=== PATIENT | male | born 1970 | race Two or more races ===

== ENCOUNTER → 2018-05-16 13:34 | Outpatient (CLI) | payer OTHER, SELFPAY ==
[2018-05-16 13:46] LABS: Adenovirus F 40/41, stool Not Detected (NotDetected); Astrovirus Not Detected (NotDetected); Campylobacter Not Detected (NotDetected); Clostridium Difficile A/B, PCR Not Detected (NotDetected); Cryptosporidium Not Detected (NotDetected); Cyclospora Cayetanesis Not Detected (NotDetected); Entamoeba histolytica Not Detected (NotDetected); Enteroaggregative E coli Not Detected (NotDetected); Enteropathogenic E coli Not Detected (NotDetected); Enterotoxigenic E coli Not Detected (NotDetected); Giardia lamblia Not Detected (NotDetected); Norovirus Not Detected (NotDetected); Plesimonas Shigalloides, PCR Not Detected (NotDetected); Rotavirus A Not Detected (NotDetected); Salmonella, PCR Not Detected (NotDetected); Sapovirus Not Detected (NotDetected); Shiga-like toxin E coli Not Detected (NotDetected); Shigella Enterovasive E coli Not Detected (NotDetected); Vibrio Cholerae Not Detected (NotDetected); Vibrio, PCR Not Detected (NotDetected); Yersinia Entercolitica, PCR Not Detected (NotDetected)
== END ==
PROVIDERS: PCP Nurse Practitioner Family; Visit Provider Nurse Practitioner
DX: R19.7 Diarrhea, unspecified (principal)
CPT/HCPCS: 87507

== ENCOUNTER → 2019-05-17 07:46 | Outpatient (CLI) | payer OTHER, SELFPAY ==
[2019-05-17 07:47] LABS: MANUAL DIFFERENTIAL MANUAL DIFFERENTIAL (MANUAL DIFF)
[2019-05-17 08:21] LABS: Basophils # 0.1 K/mm3 (0-0.2); Basophils % 0.8 % (0.1-2.0); Eosinophils # 0.2 K/mm3 (0.0-0.4); Hematocrit 47.8 % (42.0-52.0); Hemoglobin 15.1 g/dL (14.1-18.0); Lymphocytes # 1.8 K/mm3 (0.7-4.5); Lymphocytes % 30.6 % (10-50); Mean Corpuscular HGB Conc 31.7 g/dL (31.8-35.4); Mean Corpuscular Hemoglobin 31.5 pg (27.0-31.2); Mean Corpuscular Volume 99.5 fl (80-94); Monocytes # 0.4 K/mm3 (0.1-1.0); Monocytes % 6.3 % (1.7-9.3); Neutrophils # 3.4 K/mm3 (1.8-7.8); Neutrophils % 58.3 % (37.0-80.0); Platelet Count 190 K/mm3 (142-424); Red Cell Distribution Width 13.3 % (11.5-17.5); White Blood Count 5.9 K/mm3 (4.8-10.8)
[2019-05-17 09:57] LABS: Alanine Aminotransferase 42 U/L (12-78); Albumin/Globulin Ratio 1.3 (1.1-1.8); Alkaline Phosphatase 97 U/L (46-116); Anion Gap 13.1 mEq/L (5-15); Aspartate Amino Transferase 23 U/L (15-37); Bilirubin,Total 0.3 mg/dL (0.2-1.0); Blood Urea Nitrogen 14 mg/dL (7-18); Calcium 8.6 mg/dL (8.5-10.1); Carbon Dioxide 26 mmol/L (21.0-32.0); Chloride 103 mmol/L (98-107); Chol/HDL Ratio 3.8 (1-3.5); Cholesterol 184 mg/dL (140-200); Creatinine,Serum 0.71 mg/dL (0.70-1.30); Estimated Glomerular Filt Rate 118 ml/min (>60); GFR (African American) 143 ML/MIN (>60); Globulin 3.1 gm/dl (1.3-3.2); Glucose 102 mg/dL (74-106); HDL Cholesterol 48 mg/dL (27-67); LDL Cholesterol 100 mg/dL (0-130); Potassium 4.1 mmoL/L (3.5-5.1); Sodium 138 mmol/L (136-145); Thyroid Stimulating Hormone 1.57 uIU/ml (0.358-3.740); Total Protein,Serum 7.1 gm/dL (6.4-8.2); Triglycerides 179 mg/dL (30-200); VLDL Cholesterol 36 mg/dL (0-40)
[2019-05-17 10:33] LABS: Eosinophils % 3 % (0-3); Lymphocytes % 23 % (10-50); Monocytes % 12 % (2-9); Neutrophils % 60 % (42-76); Platelet Estimate Normal; Total Cells Counted 100
[2019-05-17 10:34] LABS: RBC Morphology Normal
[2019-05-20 07:14] LABS: Vitamin D 25 Hydroxy 15.8 ng/mL (30.0-100.0)
== END ==
PROVIDERS: Visit Provider Nurse Practitioner Family
DX: E78.5 Hyperlipidemia, unspecified (principal); I10 Essential (primary) hypertension; E55.9 Vitamin D deficiency, unspecified
CPT/HCPCS: 36415; 80053; 80061; 82652; 84439; 84443; 85007; 85014; 85018; 85048; 85049

== ENCOUNTER 2020-02-29 06:39 | Emergency (ER) | payer OTHER, SELFPAY ==
[2020-02-29 06:48] VITALS: BP 138/82; PULSE 70; RESP 16; TEMP 36.9; O2SAT 99; BMI 32.4
--- NOTE | 2020-02-29 07:11 | PC.NURSE ---
report given to kathrine floyd rn
[2020-02-29 07:18] VITALS: BP 123/85; PULSE 64; O2SAT 99
--- NOTE | 2020-02-29 07:19 | HMH.EDALLER ---
ED Disposition Clinical Impression: Allergic reaction Qualifiers: Encounter type: initial encounter Qualified Code(s): T78.40XA - Allergy, unspecified, initial encounter Disposition: Home, Self-Care Condition on Discharge: Good Instructions: DI for General Allergic Reactions Additional Instructions: use meds and see pcp for follow up Prescriptions: predniSONE [Prednisone 20mg Tab] 20 mg PO BID #10 tab Prescription Printed Referrals: Bishnu Patterson APRN [Primary Care Provider] - - Critical Care Critical Care Time: No Attestation: On 02/29/20, the high probability of a clinically significant, sudden or life threatening deterioration of the following system(s) required my full and direct attention, intervention and personal management. The time I documented below is in addition to time spent performing reported procedures but includes the following listed in this critical care notation. Medical Decision Making - Medical Records Medical records reviewed: Yes: I reviewed the patient's medical records. - Steve Inquiry Pt receiving controlled substance: No Vital Signs: 02/29/20 06:48 Temperature 98.5 F Temperature Source Oral Pulse Rate [Right Brachial] 70 Respiratory Rate 16 Blood Pressure [Right Arm] 138/82 Blood Pressure Mean [Right Arm] 100 Blood Pressure Source [Right Arm] Automatic Cuff Blood Pressure Position [Right Arm] Sitting 02 Sat by Pulse Oximetry 99 Oxygen Delivery Method Room Air - Lab Data Lab results reviewed: Yes: I reviewed the patient's lab results. Orders (Tests/Meds): ED MEDICATIONS Generic Name Dose Route Start Last Admin Trade Name Freq PRN Reason Stop Dose Admin Sodium Chloride 8 ml 02/29/20 07:00 02/29/20 07:10 Sodium Chloride 0.9% 10ml Vial IV 03/30/20 06:59 8 ml NEEDED PRN Administration dilute pepcid Discontinued Medications Generic Name Dose Route Start Last Admin Trade Name Freq PRN Reason Stop Dose Admin Diphenhydramine HCl 25 mg 02/29/20 07:00 02/29/20 07:10 Benadryl 50mg/1ml Vial IV 02/29/20 07:01 25 mg ONCE ONE Administration Famotidine 20 mg 02/29/20 07:00 02/29/20 07:10 Pepcid 20mg/2ml Vial IV 02/29/20 07:01 20 mg ONCE ONE Administration Methylprednisolone Sodium Succinate 125 mg 02/29/20 07:00 02/29/20 07:10 Solu-Medrol 125mg/2ml Vial IV 02/29/20 07:01 125 mg ONCE ONE Administration Allergic React/Insect Bite HPI - General Chief complaint: Allergic Reaction Stated complaint: Itching, eyes swollen Time Seen by Provider: 02/29/20 07:00 Mode of Arrival - ED Triage: Family Vehicle Source of Information: Patient, Spouse, Medical Record Limitations: No Limitations - History of Present Illness HPI narrative: itchy and swollen eyes with no known exposure -no resp sx - MD complaint: allergic reaction Onset (ago): hour(s) Symptoms: itching, facial swelling Treatment prior to arrival: none Allergies/Adverse Reactions: Allergies Allergy/AdvReac Type Severity Reaction Status Date / Time From MILK (FOOD/DRUG) Allergy Intermediate NA-NAUSEA/V Uncoded 04/29/19 10:19 OMITING Previous Allergic Reaction History: none Severity: moderate - Related Data Previous Rx's Medication Instructions Recorded amlodipine 5 mg tablet 5 mg PO DAILY #90 tab 04/29/19 gemfibrozil 600 mg tablet 600 mg PO BID 90 Days #180 tab 04/29/19 lovastatin 20 mg tablet 20 mg PO QPM 90 Days #90 tab 04/29/19 cholecalciferol (vitamin D3) 50 2,000 unit PO DAILY #30 cap 05/21/19 mcg (2,000 unit) capsule cholecalciferol (vitamin D3) 1,250 50,000 unit PO QWEEK #14 cap 10/06/19 mcg (50,000 unit) capsule predniSONE [Prednisone 20mg 20 mg PO BID #10 tab 02/29/20 Tab] [facility] History - Hepatitis A Screen Drug use history?: No High risk sexual behaviors?: No History of sexually transmitted infection?: No Currently employed?: No Childcare worker?: No Do you have indoor plumbing?: Yes Do you
[2020-02-29 07:36] VITALS: BP 128/69; PULSE 78; RESP 16; TEMP 36.6; O2SAT 98
== END 2020-02-29 07:37 | disposition home or self-care (01) ==
PROVIDERS: Emergency Provider Emergency Medicine; PCP Nurse Practitioner Family
DX: T78.40XA Allergy, unspecified, initial encounter (principal); J44.9 Chronic obstructive pulmonary disease, unspecified; E78.5 Hyperlipidemia, unspecified; I10 Essential (primary) hypertension
CPT/HCPCS: 96374; 96375; 99282

== ENCOUNTER 2021-03-09 06:08 | Emergency (ER) | payer OTHER, SELFPAY ==
[2021-03-09 06:11] VITALS: BP 163/96; PULSE 86; RESP 17; TEMP 36.9; O2SAT 100; BMI 30.9
--- NOTE | 2021-03-09 06:32 | CT_ITS ---
PROCEDURE: CT ABDOMEN PELVIS W CON CLINICAL INDICATION: periumbilical and bilateral lower quadrant pain COMPARISON: CT ABDPELW/O CT ABD PELVIS W/O CONTRAST from 04/15/2015 TECHNIQUE: IV Contrast: 75ML Isovue 370 Oral Contrast None Axial images obtained with sagittal and coronal reformats. All CT scans at the facility use one or more dose reduction, viz: automated exposure control, ma/kV adjustment per patient size (including targeted exams where dose is matched to indication, i.e. head), or iterative reconstruction technique. FINDINGS: LOWER THORAX: No acute finding. Minimal gynecomastia ABDOMEN & PELVIS: Fatty liver. There is hepatomegaly. The right lobe of the liver measures 23 cm cephalad caudad. The transverse dimension of the liver superiorly is 20 cm. No focal liver lesion is identified. No radiopaque gallstones apparent. The spleen and adrenal glands have an unremarkable appearance. No obvious pancreatic mass or peripancreatic fluid collection. Small bilateral renal cysts are present. 2 mm stone is noted in the lower pole of the left kidney. No hydronephrosis. No ureteral calculi. Small umbilical hernia containing fat. No evidence of appendicitis. No intestinal obstruction or free air. There are few scattered colonic diverticula but no evidence of diverticulitis. No pelvic mass or abnormal fluid collection. No acute bony anomaly. There is mild thickening of the transverse colon versus nondistention. Mild thickening versus nondistention of the rectosigmoid region. IMPRESSION: 1. Hepatomegaly. 2. Nonobstructing 2 mm left lower pole renal calculus. 3. Nonspecific thickening of the transverse colon and rectosigmoid region. This may only be due to nondistention. Colitis is included in the differential diagnosis. Dictated by: Robbie Hooper MD 03/09/2021 08:13 Robbie Hooper MD in [place] 03/09/2021 08:13
[2021-03-09 06:34] VITALS: BP 157/84; PULSE 87; O2SAT 100
--- NOTE | 2021-03-09 06:37 | HMH.EDGENADL ---
ED Disposition Clinical Impression: Colitis Diarrhea Qualifiers: Diarrhea type: unspecified type Qualified Code(s): R19.7 - Diarrhea, unspecified Disposition: Home, Self-Care Condition on Discharge: Good Instructions: DI for Diarrhea and Traveler's Diarrhea -- Adult, DI for Acute Abdominal Pain, DI for Colitis Additional Instructions: You have been evaluated for abdominal pain, diagnosed with colitis. Take bentyl for cramps. Zofran for nausea. Clear liquid diet. Take ciprofloxacin and metronidazole if you develop worsening pain, fever, chills. Follow up with your primary care doctor in 1-2 days for recheck. Return to the ER for any new or worsening pain or other concerns. Prescriptions: Dicyclomine HCl [Bentyl 10mg capsule] 10 mg PO TID PRN #12 cap PRN Reason: Mild Pain Transmission Status: Received by [facility] Ciprofloxacin HCl [Ciprofloxacin 250mg Tab] 500 mg PO BID 10 Days #40 tab Transmission Status: Received by [facility] metroNIDAZOLE [Metronidazole] 500 mg PO Q8 10 Days #30 tab Transmission Status: Received by [facility] Ondansetron [Zofran 4mg ODT] 4 mg PO TIDP PRN #12 tab PRN Reason: Nausea Transmission Status: Received by [facility] Referrals: Rakesh Melgoza MD [Primary Care Provider] - - Critical Care Critical Care Time: No Attestation: On 03/09/21, the high probability of a clinically significant, sudden or life threatening deterioration of the following system(s) required my full and direct attention, intervention and personal management. The time I documented below is in addition to time spent performing reported procedures but includes the following listed in this critical care notation. Medical Decision Making - Steve Inquiry Pt receiving controlled substance: No Vital Signs: 03/09/21 06:11 03/09/21 06:34 03/09/21 09:01 Temperature 98.4 F 98.4 F Temperature Source Oral Pulse Rate 87 78 Pulse Rate [Right] 86 Respiratory Rate 17 18 Blood Pressure 157/84 H 181/106 H Blood Pressure [Right Arm] 163/96 H Blood Pressure Mean [Right Arm] 118 Blood Pressure Source Automatic Cuff Blood Pressure Source [Right Arm] Automatic Cuff Blood Pressure Position Sitting 02 Sat by Pulse Oximetry 100 100 Oxygen Delivery Method Room Air Room Air Room Air - Lab Data Lab Results 03/09/21 06:42: WBC 12.6 H, RBC 4.73, Hgb 15.0, Hct 44.3, MCV 93.6, MCH 31.6 H, MCHC 33.8, RDW 13.1, Plt Count 167, MPV 9.4, Neut % (Auto) 87.0 H, Lymph % (Auto) 8.2 L, [place] % (Auto) 3.2, Eos % (Auto) 1.0, Baso % (Auto) 0.5, Neut # (Auto) 11.0 H, Lymph # (Auto) 1.1, [place] # (Auto) 0.4, Eos # (Auto) 0.1, Baso # (Auto) 0.1, Total Counted 100, Neutrophils % (Manual) 90 H, Lymphocytes % (Manual) 6 L, Monocytes % (Manual) 4, Platelet Estimate Normal, RBC Morphology Normal 03/09/21 06:42: Sodium 135 L, Potassium 4.1, Chloride 102, Carbon Dioxide 23, Anion Gap 14.1, BUN 13, Creatinine 0.70, Estimated Creat Clear 156, Estimated GFR 123, Est GFR ( Amer) 148, Glucose 103 H, Calcium 8.9, Total Bilirubin 0.6, AST 42, ALT 41, Alkaline Phosphatase 90, Total Protein 7.8, Albumin 4.8, Globulin 3.0, Albumin/Globulin Ratio 1.6, Lipase 94 03/09/21 06:50: Lactate 1.1 03/09/21 08:12: Urine Color Yellow, Urine Appearance Clear, Urine pH 5.5, Ur Specific [place] 1.010, Urine Protein Negative, Urine Glucose (UA) Negative, Urine Ketones Negative, Urine Blood Negative, Urine Nitrate Negative, Urine Bilirubin Negative, Urine Urobilinogen 0.2, Ur Leukocyte Esterase Negative, Urine RBC None, Urine WBC 3-5, Ur Squamous Epith Cells Occasional, Urine Bacteria None Result diagrams: 03/09/21 06:42 03/09/21 06:42 Orders (Tests/Meds): ED MEDICATIONS Discontinued Medications Generic Name Dose Route Start Last Admin Trade Name Freq PRN Reason Stop Dose Admin Lactated Ringer's 1,000 mls @ 999 mls/hr 03/09/21 06:45 03/09/21 06:42 Lactated Ringer
[2021-03-09 06:49] LABS: Basophils # 0.1 K/mm3 (0-0.2); Basophils % 0.5 % (0.1-2.0); Eosinophils # 0.1 K/mm3 (0.0-0.4); Hematocrit 44.3 % (42.0-52.0); Lymphocytes # 1.1 K/mm3 (0.7-4.5); Lymphocytes % 8.2 % (10-50); Mean Corpuscular HGB Conc 33.8 g/dL (31.8-35.4); Mean Corpuscular Hemoglobin 31.6 pg (27.0-31.2); Mean Corpuscular Volume 93.6 fl (80-94); Mean Platelet Volume 9.4 fl (7.4-10.4); Monocytes # 0.4 K/mm3 (0.1-1.0); Monocytes % 3.2 % (1.7-9.3); Platelet Count 167 K/mm3 (142-424); Red Blood Count 4.73 M/mm3 (4.60-6.20); Red Cell Distribution Width 13.1 % (11.5-17.5); White Blood Count 12.6 K/mm3 (4.8-10.8)
[2021-03-09 06:54] LABS: MANUAL DIFFERENTIAL MANUAL DIFFERENTIAL (MANUAL DIFF)
[2021-03-09 07:08] LABS: Alanine Aminotransferase 41 U/L (12-78); Albumin Level 4.8 g/dl (3.5-5.0); Albumin/Globulin Ratio 1.6 (1.1-1.8); Alkaline Phosphatase 90 U/L (38-126); Anion Gap 14.1 mEq/L (5-15); Aspartate Amino Transferase 42 U/L (17-59); Bilirubin,Total 0.6 mg/dl (0.2-1.3); Blood Urea Nitrogen 13 mg/dl (9-20); Calcium 8.9 mg/dl (8.4-10.2); Carbon Dioxide 23 mmol/L (22.0-30.0); Chloride 102 mmol/L (98-107); Creatinine Clearance Estimated 156 mL/min (50-200); Estimated Glomerular Filt Rate 123 ml/min (>60); GFR (African American) 148 ML/MIN (>60); Glucose 103 mg/dl (74-100); Lipase 94 U/L (23-300); Potassium 4.1 mmoL/L (3.5-5.1); Sodium 135 mmol/L (136-145); Total Protein,Serum 7.8 g/dl (6.3-8.2)
--- NOTE | 2021-03-09 07:08 | HMH.ITSTN ---
labs still pending for ct abd pelvis with iv contrast. dana states pt is pre diabetic so she waiting for labs to come back.
[2021-03-09 07:13] LABS: Lactic Acid 1.1 mmol/L (0.7-2.1)
--- NOTE | 2021-03-09 07:32 | PC.NURSE ---
contacted rad to check on status of pt having CT scan, spoke with sabina, states she will be down to get pt soon.
--- NOTE | 2021-03-09 07:37 | PC.NURSE ---
pt to CT
[2021-03-09 07:39] LABS: Lymphocytes % 6 % (10-50); Monocytes % 4 % (2-9); Neutrophils % 90 % (42-76); Platelet Estimate Normal; RBC Morphology Normal; Total Cells Counted 100
--- NOTE | 2021-03-09 08:13 | PC.NURSE ---
Urine sent to lab
[2021-03-09 08:16] LABS: Microscopic, Urine URINE MICROSCOPIC (MICROSCOPIC)
[2021-03-09 08:18] LABS: Appearance,Urine CLEAR (Clear); Bilirubin,Urine Negative (Negative); Blood, Urine Negative (Negative); Color,Urine YELLOW (Yellow); Glucose,Urine (UA) Negative (Negative); Ketones,Urine Negative (Negative); Leukocyte Esterase,Urine Negative (Negative); Nitrate,Urine Negative (Negative); PH,Urine 5.5 (5.0-8.5); Protein,Urine Negative (Negative); Urobilinogen,Urine 0.2 EU/dl (0.2)
[2021-03-09 08:26] LABS: Squamous Epithelial Cell,Urine Occasional #/hpf (0-5)
[2021-03-09 09:01] VITALS: BP 181/106; PULSE 78; RESP 18; TEMP 36.9; O2SAT 100
== END 2021-03-09 09:03 | disposition home or self-care (01) ==
PROVIDERS: Emergency Provider Emergency Medicine; PCP Emergency Medicine
DX: K52.9 Noninfective gastroenteritis and colitis, unspecified (principal); J44.9 Chronic obstructive pulmonary disease, unspecified; I10 Essential (primary) hypertension; E78.5 Hyperlipidemia, unspecified; Z79.899 Other long term (current) drug therapy
CPT/HCPCS: 74177; 80053; 81001; 83605; 83690; 85007; 85025; 96365; 96375; 99283; J2405; Q9967

== ENCOUNTER 2021-12-05 07:01 | Emergency (ER) | payer OTHER, SELFPAY ==
[2021-12-05 07:03] VITALS: BP 132/93; PULSE 86; RESP 16; TEMP 36.8; O2SAT 99; BMI 27.4
--- NOTE | 2021-12-05 07:14 | XR_ITS ---
FINAL REPORT CLINICAL HISTORY: rt knee pain, no injury FINDINGS: 3 views of the right knee were obtained. There is no acute fracture or dislocation. There is mild narrowing of the medial compartment joint space with subchondral sclerosis. There is osteophyte formation of the medial joint margin. There are moderate osteophytes along the undersurface of the patella. There is a moderate joint effusion. IMPRESSION: Moderate osteoarthritis of the medial compartment and patellofemoral joint spaces. Moderate joint effusion. Reviewed, Interpreted and Dictated by Micheal Costello MD Transcribed by Benitez Demarco Authenticated by Micheal Costello MD on 12/05/2021 09:51:51 AM [facility]
--- NOTE | 2021-12-05 07:20 | PC.NURSE ---
ED MD at
--- NOTE | 2021-12-05 07:24 | HMH.EDGENADL ---
ED Disposition Clinical Impression: Knee pain, acute Qualifiers: Laterality: right Qualified Code(s): M25.561 - Pain in right knee Disposition: Home, Self-Care Condition on Discharge: Good Instructions: DI for Knee Pain Additional Instructions: use meds and see pcp and ortho Prescriptions: predniSONE [Prednisone 20mg Tab] 20 mg PO BID #10 tab Transmission Status: Pending to [facility] Referrals: Rakesh Melgoza MD [Primary Care Provider] - - Critical Care Critical Care Time: No Attestation: On 12/05/21, the high probability of a clinically significant, sudden or life threatening deterioration of the following system(s) required my full and direct attention, intervention and personal management. The time I documented below is in addition to time spent performing reported procedures but includes the following listed in this critical care notation. Medical Decision Making - Medical Records Medical records reviewed: Yes: I reviewed the patient's medical records. - Steve Inquiry Pt receiving controlled substance: No Vital Signs: 12/05/21 07:03 12/05/21 07:30 Temperature 98.3 F Temperature Source Oral Pulse Rate 75 Pulse Rate [Radial] 86 Respiratory Rate 16 Blood Pressure 142/81 H Blood Pressure [Right Arm] 132/93 H Blood Pressure Mean [Right Arm] 106 Blood Pressure Source Automatic Cuff Blood Pressure Position [Right Arm] Sitting 02 Sat by Pulse Oximetry 99 Oxygen Delivery Method Room Air - Lab Data Lab results reviewed: Yes: I reviewed the patient's lab results. Orders (Tests/Meds): ORDERS Category Date Time Status Knee XR right 3 views [XR knee RT 3V] Stat Exams 12/05/21 07:14 Ordered - Radiology Data #1 Image(s): Knee Image Reviewed: Yes I have reviewed radiologist's interpretation Preliminary Findings: Abnormal, No Fracture Seen Medical Decision Narrative: pt with effusion with djd changes General Adult HPI - General Chief complaint: PAIN Stated complaint: Old Injury Right Knee Time Seen by Provider: 12/05/21 07:24 Mode of Arrival: Ambulatory Source of Information: Patient, Significant Other, Medical Record Limitations: No Limitations Description of Symptoms (Recalled from ER Triage Doc. by RN): TO ED PER PVT CAR WITH C/O RT KNEE PAIN X 1 YR. PT GETTING WORSE OVER THE LAST SEVERAL DAYS. C/O PAIN, SWELLIING, DIFFICULTY WITH AMBULATION. - History of Present Illness HPI narrative: pt with rt knee pain and swelling proressive over the last few weeks Onset (ago): week(s) Location: lower extremity Severity: moderate Associated symptoms: denies other symptoms Treatments prior to arrival: NSAID - Related Data Home Medications Medication Instructions Recorded Confirmed Amlodipine Besylate [Amlodipine 5 mg PO DAILY 03/09/21 03/09/21 5mg tab] Lovastatin 20 mg PO QPM 03/09/21 03/09/21 gemfibroziL [Gemfibrozil] 600 mg PO BID 03/09/21 03/09/21 Previous Rx's Medication Instructions Recorded Ciprofloxacin HCl [Ciprofloxacin 500 mg PO BID 10 Days #40 tab 03/09/21 250mg Tab] Dicyclomine HCl [Bentyl 10mg 10 mg PO TID PRN #12 cap 03/09/21 capsule] Ondansetron [Zofran 4mg ODT] 4 mg PO TIDP PRN #12 tab 03/09/21 metroNIDAZOLE [Metronidazole] 500 mg PO Q8 10 Days #30 tab 03/09/21 predniSONE [Prednisone 20mg 20 mg PO BID #10 tab 12/05/21 Tab] Allergies Allergy/AdvReac Type Severity Reaction Status Date / Time From MILK (FOOD/DRUG) Allergy Intermediate NA-NAUSEA/V Uncoded 04/14/20 15:55 OMITING [facility] History - Hepatitis A Screen Drug use history?: No High risk sexual behaviors?: No History of sexually transmitted infection?: No Currently employed?: No Childcare worker?: No Do you have indoor plumbing?: Yes Do you have electricity?: Yes Attestation statement:: This patient has been screened for Hepatitis A risk factors. I have reviewed the patient's past medical history: Yes Medical H
[2021-12-05 07:30] VITALS: BP 142/81; PULSE 75
--- NOTE | 2021-12-05 07:33 | PC.NURSE ---
patient to Radiology
[2021-12-05 08:02] VITALS: BP 132/74; PULSE 78; RESP 16; TEMP 36.6; O2SAT 98
== END 2021-12-05 08:04 | disposition home or self-care (01) ==
PROVIDERS: Emergency Provider Emergency Medicine; PCP Emergency Medicine
DX: M25.561 Pain in right knee (principal); I10 Essential (primary) hypertension; J44.9 Chronic obstructive pulmonary disease, unspecified; E78.5 Hyperlipidemia, unspecified
CPT/HCPCS: 29505; 73562

== ENCOUNTER → 2021-12-07 13:19 | Outpatient (CLI) | payer OTHER, SELFPAY ==
--- NOTE | 2021-12-07 13:23 | XR_ITS ---
FINAL REPORT CLINICAL HISTORY: knee pain COMPARISON: December 05, 2021 FINDINGS: 4 views of the right knee were obtained. There is no acute fracture or dislocation. There is moderate narrowing of the medial compartment joint space. There is osteophyte formation along the undersurface of the patella. There is a small joint effusion. IMPRESSION: Moderate medial compartment and patellofemoral osteoarthritis. Reviewed, Interpreted and Dictated by Micheal Costello MD Transcribed by Benitez Demarco Authenticated by Micheal Costello MD on 12/07/2021 03:28:18 PM [facility]
== END ==
PROVIDERS: PCP Emergency Medicine; Visit Provider Orthopaedic Surgery
DX: M25.561 Pain in right knee (principal)
CPT/HCPCS: 73564

== ENCOUNTER → 2021-12-28 08:36 | Outpatient (CLI) | payer OTHER, SELFPAY ==
--- NOTE | 2021-12-28 08:49 | XR_ITS ---
FINAL REPORT CLINICAL HISTORY: knee pain FINDINGS: 4 weight-bearing views of the left knee were obtained. There is no acute fracture or dislocation. There are mild degenerative changes. There are multiple calcifications posterior to the knee of uncertain etiology that could represent loose bodies within a popliteal cyst. IMPRESSION: Mild degenerative change. Small posterior calcifications could represent loose bodies within a popliteal cyst. If indicated, CT or MRI could further evaluate. Reviewed, Interpreted and Dictated by Josafat Carbone III, MD Transcribed by Benitez Demarco Authenticated by Josafat Carbone III, MD on 12/28/2021 10:16:10 AM [facility]
== END ==
PROVIDERS: PCP Emergency Medicine; Visit Provider Orthopaedic Surgery
DX: M25.562 Pain in left knee (principal)
CPT/HCPCS: 73564

== ENCOUNTER → 2022-01-05 14:30 | Outpatient (CLI) | payer OTHER, SELFPAY ==
--- NOTE | 2022-01-05 14:30 | MR_ITS ---
FINAL REPORT TECHNIQUE: Multiplanar and multisequence imaging the right knee was obtained without contrast. CLINICAL HISTORY: knee pain. medial and lateral knee pain. knee instability. swelling in knee. FINDINGS: Bones: There is no acute fracture. There is marrow edema in the medial femoral condyle and to a lesser extent the medial tibial plateau with overlying cartilage defect. Marrow edema is likely degenerative. There is chondromalacia patella. There are no full thickness cartilage defects. Menisci: There is a complex tear of the posterior horn of the medial meniscus. The anterior horn is very small and extruded anteriorly. The lateral meniscus is intact.. Ligaments: No cruciate or lateral collateral ligament tear is present. There is a medial collateral ligament sprain. Tendons/Muscles: The quadriceps and patellar tendons are within normal limits. The biceps femoris tendon and iliotibial tract are intact. The popliteus tendon is normal. Other: There is a large joint effusion. Remaining soft tissues are normal. IMPRESSION: Degenerative joint disease most pronounced in the medial compartment with reactive edema and cartilage loss. Medial meniscal tear. MCL sprain. Reviewed, Interpreted and Dictated by Aby Alicea MD Transcribed by Benitez Demarco Authenticated by Aby Alicea MD on 01/05/2022 04:53:00 PM [facility]
--- NOTE | 2022-01-05 14:30 | MR_ITS ---
FINAL REPORT TECHNIQUE: Multiplanar and multisequence imaging the left knee was obtained without contrast. CLINICAL HISTORY: knee pain left knee swelling medial knee pain x 1 year FINDINGS: Bones: There is no acute fracture or marrow edema. The joint space is preserved. There is chondromalacia patella, most pronounced along the medial patellar facet. There is also chondromalacia of the medial femoral condyle. Menisci: No meniscal tear is present. Ligaments: There is abnormal signal intensity in the anterior cruciate ligament, may represent a sprain or partial tear. The posterior cruciate ligament and collateral ligaments appear intact. Tendons/Muscles: The quadriceps and patellar tendons are within normal limits. The biceps femoris tendon and iliotibial tract are intact. The popliteus tendon is normal. Other: There is no joint effusion. Remaining soft tissues are normal. IMPRESSION: Mild degenerative disease with chondromalacia. Anterior cruciate ligament sprain or partial tear. Reviewed, Interpreted and Dictated by Aby Alicea MD Transcribed by Chio Contreras Authenticated by Aby Alicea MD on 01/06/2022 09:15:10 AM [facility]
== END ==
PROVIDERS: PCP Emergency Medicine; Visit Provider Orthopaedic Surgery
DX: G89.29 Other chronic pain (principal); M25.562 Pain in left knee; M25.561 Pain in right knee
CPT/HCPCS: 73721

== ENCOUNTER → 2022-02-22 08:01 | Outpatient (CLI) | payer OTHER, SELFPAY ==
--- NOTE | 2022-02-22 08:15 | ECG_ITS ---
APPROVED REPORT Exam: Resting ECG HR:77 bpm ECG Measurements Heart Rate 77 AXES ND 161 P 31 QRSd 104 QRS -22 QT 377 T 6 QTc 408 Conclusion SINUS RHYTHM BORDERLINE LEFT AXIS DEVIATION [QRS AXIS < -20] BORDERLINE ECG UNCONFIRMED REPORT Electronically signed by : Adrian Hunt MD 02/22/2022 17:57:23
[2022-02-22 08:19] LABS: Basophils # 0.1 K/mm3 (0-0.2); Basophils % 2.4 % (0.1-2.0); Eosinophils # 0.3 K/mm3 (0.0-0.4); Eosinophils % 6.1 % (0.1-12.0); Hematocrit 46.3 % (42.0-52.0); Hemoglobin 15.6 g/dL (14.1-18.0); Lymphocytes # 1.4 K/mm3 (0.7-4.5); Lymphocytes % 25.6 % (10-50); Mean Corpuscular HGB Conc 33.7 g/dL (31.8-35.4); Mean Platelet Volume 9.5 fl (7.4-10.4); Monocytes # 0.4 K/mm3 (0.1-1.0); Monocytes % 6.7 % (1.7-9.3); Neutrophils # 3.4 K/mm3 (1.8-7.8); Neutrophils % 59.3 % (37.0-80.0); Platelet Count 235 K/mm3 (142-424); Red Blood Count 4.73 M/mm3 (4.60-6.20); Red Cell Distribution Width 13.1 % (11.5-17.5); White Blood Count 5.7 K/mm3 (4.8-10.8)
[2022-02-22 09:14] LABS: Alanine Aminotransferase 26 U/L (12-78); Albumin Level 4.7 g/dl (3.5-5.0); Albumin/Globulin Ratio 1.9 (1.1-1.8); Alkaline Phosphatase 91 U/L (38-126); Anion Gap 14.1 mEq/L (5-15); Aspartate Amino Transferase 28 U/L (17-59); Bilirubin,Total 0.3 mg/dl (0.2-1.3); Blood Urea Nitrogen 18 mg/dl (9-20); Calcium 9.2 mg/dl (8.4-10.2); Carbon Dioxide 25 mmol/L (22.0-30.0); Chloride 103 mmol/L (98-107); Estimated Glomerular Filt Rate 122 ml/min (>60); GFR (African American) 148 ML/MIN (>60); Globulin 2.5 g/dL (1.3-3.2); Glucose 163 mg/dl (74-100); Potassium 4.1 mmoL/L (3.5-5.1); Sodium 138 mmol/L (136-145); Total Protein,Serum 7.2 g/dl (6.3-8.2)
== END ==
PROVIDERS: PCP Emergency Medicine; Visit Provider Orthopaedic Surgery
DX: Z01.812 Encounter for preprocedural laboratory examination (principal); Z20.822 Contact with and (suspected) exposure to COVID-19; M17.11 Unilateral primary osteoarthritis, right knee
CPT/HCPCS: 36415; 80053; 85025; 93005; C9803; U0003; U0005

== ENCOUNTER 2022-02-24 06:37 | Day surgery (SDC) | payer OTHER, SELFPAY ==
[2022-02-23 09:28] VITALS: BMI 27.4
[2022-02-24] VITALS (10 sets, daily range): BP systolic 130–173; BP diastolic 48–98; PULSE 61–71; RESP 14–20; TEMP 36.1–36.7; O2SAT 97–100
[2022-02-24 07:08] LABS: POC Glucose,Bedside 97 (70-110)
--- NOTE | 2022-02-24 07:11 | PC.NURSE ---
[id number] out video remote operations and maintenance technican for patient use as needed
--- NOTE | 2022-02-24 09:51 | HMH.ANESCL ---
[facility] Anesthesia Checklist - Patient Identification Patient Identification: Arm Band - Structural Data Admitted From: Home Planned Operative Procedure/s: Knee arthroscopy Consent for Planned Operative Procedure(s) Verified: Yes - NPO Status Verified Time NPO: 00:00 - Additional verifications Anesthesia Reactions: No Hx Blood Transfusions: No Blood Transfusion Reaction: No - Airway Assessment C-Spine Mobility Assessed: Yes TMJ Mobility Assessed: Yes Dentition: Good Dentition - Neurological Assessment Level of Consciousness: Awake Hx Seizures: No Numbness or tingling in extremities: No - Anesthesia Plan Anesthesia Risk discussed: Yes Anesthesia Plan: Verified ASA Class: II Anesthesia Type: General [facility] History I have reviewed the patient's past medical history: Yes Medical History: Reports:: Hyperlipidemia, Hypertension Denies:: Cancer, Internal Pacemaker, MRSA, Seizures *Have you ever received a pneumonia vaccine?: No *Have you received a flu vaccine this season?: Yes Other Medical History: Reports: Arthritis. Denies: Blood Transfusion Reaction Anesthesia experience/problems:: Difficult to sedate per Other Surgeries: Yes: No Previous Surgery. No: Pacemaker Amputation: No Fractures: No - *Social History Last grade of school completed: 11th or 12th Smoking Status: Never smoker Alcohol Intake: current Alcohol Intake Frequency:: a few times a week Substance Use Type: denies use *Occupational Status:: unemployed Housing: house Household Members: significant other *Travel in the last 8 weeks: None Family Hx:: Unable to obtain
--- NOTE | 2022-02-24 12:16 | HMH.ANESI ---
[facility] Anesthesia Record Part I Intake, IV Amount: 1,050 Estimated blood loss (mL): 5 Urine output (mL): 0 Blood Pressure: 155/86 SaO2: 97 Pulse Rate: 63 Respiratory Rate: 14 Temperature: 98.0 F Patient is:: Drowsy Stable to PACU at:: 12:14
--- NOTE | 2022-02-24 12:37 | HMH.OPNOTE ---
Date of procedure: 02/24/22 Pre-op Diagnosis:: 1. Chronic bilateral knee pain 2. Medial meniscus tear, right knee 3. Osteoarthritis, right knee 4. Osteoarthritis, left knee Post-op Diagnosis:: Same Procedure performed:: 1. Examination of right knee under anesthesia 2. Partial medial meniscectomy, right knee 3. Chondroplasty, right knee 4. Injection of steroid and local anesthetic, left knee Surgeon:: Pelon Valencia MD PERSONNEL CLERK:: Other ([place]) Anesthesia: LMA Estimated blood loss (mL): 2 Clinical Note:: The patient is a 44-year-old male with chronic bilateral knee pain. His right knee is worse than the left. The right knee pain is unresponsive to conservative management and evidence of a degenerative medial meniscal tear and arthritic changes on imaging. He has degenerative changes in his left knee. Clinically his symptoms are consistent with the above diagnosis. Resection of the torn medial meniscus, chondroplasty and debridement of the right knee is indicated to relieve the pain and improve function of the knee. Patient also opted to have an intra-articular steroid injection to his left knee at the same time. Please refer to my office note for full details. Operative findings:: Examination of the RIGHT knee under anesthesia, showed a stable knee joint. There is a small amount of knee joint effusion. Knee range of motion is from 0-120? of flexion. Arthroscopic findings include diffuse grade 2 degenerative changes over the patellofemoral and lateral compartment articular surfaces and grade 4 changes over the medial femoral condyle and medial tibial plateau. The medial meniscus had a complex degenerative tear involving the body and posterior horn. The lateral meniscus was noted to be intact. There is debris and small cartilaginous loose bodies in the knee. The anterior cruciate ligament and posterior cruciate ligaments were intact. Marked synovitis was noted. Operative note:: On the day of the procedure the patient and his partner were met in the preoperative area and positively identified. A physical examination was performed and documented. The limb was marked and initialed by me. I have again discussed the diagnosis, management options including both nonsurgical and surgical. I have discussed the proposed surgical procedure, risks and benefits and alternatives in detail. The complications discussed include but are not limited to infection, injury to nerves and blood vessels, injury to the ligaments and tendons, knee stiffness, arthrofibrosis, incomplete relief, incomplete functional recovery, DVT, PE, CRPS, complications related to anesthesia including heart attack, stroke and even . I have also discussed about the likely need for further surgery in future. I told him that there were no guarantees with surgery; he could be no better or even worse. We also discussed the postoperative recovery and rehabilitation that might be needed. I believe the patient to be well informed with regard to the proposed surgery. I told him that it would take few months for full recovery of the knee after surgery. He expressed a full understanding and wished to proceed with the planned surgery. Patient understood the risks, agreed to proceed with surgery and no guarantees or assurances were given or implied. Patient was brought to the operating room and placed supine on the operating table. All the bony prominences were appropriately padded. A general anesthesia was administered by the police sergeant prec[employer]. I first injected the left knee in the OR. Intra-articular steroid injection left knee joint: The skin was prepped in a sterile fashion with multiple chlorhexidine sticks. A combination of 40 mg of Kenalog and 4 mL of 1% lidocaine injected intra-articularly into the knee joint with under aseptic precautions through an anterolateral approach. Sterile dressing was applied. Patient tolerated the procedure well and there were no immediate complications. A well-pad
--- NOTE | 2022-02-24 13:00 | SUR.PHASEII ---
[place] 5/325mg 2 tabs given per order for c/o pain 05/22.
[2022-02-27 09:15] VITALS: BP 170/87; PULSE 68; TEMP 36.1
--- NOTE | 2022-02-27 09:15 | HMH.ANESII ---
[facility] Anesthesia Record Part II Discharge Time: 12:44 Destination: [facility] PACU nurse assessment reviewed?: Yes Patient Condition:: Good Anesthesia Complications:: None Swallowing reflex intact?: Yes Cyanosis?: No Blood Pressure: 170/87 Pulse Rate: 68 Temperature: 97 F Mental Status: Alert & Oriented Pain level:: 10 Nausea and/or vomitting:: None Intake, IV Amount: 1,000
== END 2022-02-24 13:50 | disposition home or self-care (01) ==
LOC: OR 06:38
PROVIDERS: PCP Emergency Medicine; Visit Provider Orthopaedic Surgery
PROC: (CPT 29870; principal; 2022-02-24 08:30)
DX: S83.241A Other tear of medial meniscus, current injury, right knee, initial encounter (principal); M25.561 Pain in right knee; G89.29 Other chronic pain; J44.9 Chronic obstructive pulmonary disease, unspecified; I10 Essential (primary) hypertension; E78.5 Hyperlipidemia, unspecified; M17.0 Bilateral primary osteoarthritis of knee; M25.562 Pain in left knee
CPT/HCPCS: 20610; 29881; 82962; 96374; J2405

== ENCOUNTER 2022-04-27 17:30 | Outpatient (RCR) | payer OTHER, SELFPAY ==
--- NOTE | 2022-03-21 08:39 | HMH.PTOPEV ---
PT Outpatient Evaluation Rehab PT Outpatient Evaluation Start: 03/21/22 08:06 Freq: Status: Active Protocol: Document 03/21/22 08:07 RADHAGIOVANNA (Rec: 03/21/22 08:38 SHARA [id number]) Electronically Signed By Leandro Hernandez PT 03/21/22 08:07 Outpatient Therapy Subjective History Subjective History This is the initial Physical Therapy evaluation for Michael Muse. Pt is a 44 y/o male referred to PT s/p R knee arthroscopy. Pt had medial meniscal resction, loose body clean up and chondroplasty. Surgery date was 02/24/22. Pt rpeorts to PT now w/ c/o pain, continued edema and decreased functional status. Pt reports he still has stiffness , cathing , clicking and popping w/ movement Chief Complaint Pain,Stiff Symptom Type Ache,Throb,Sharp,Stabbing, Burning Symptoms Relieved By Rest/Positioning,Ice Symptoms Aggravated By Standing,Physical Activity, Walking Prior Functional Limitations None Current Functional Limitations Housework,Sleeping,Standing, Squatting,Recreation Activity, Walking,Stairs Symptom Description Constant but Variable Level of pain today (0-10) 3 Pain scale - at its best (0-10) 3 Pain scale - at its worst (0-10) 5 Hip/Knee Eval Gait Observation General Gait Pattern Observation Antalgic Gait Assistive Device Assistive Devices None / NA Palpation Tenderness right Knee Palpation Finding Tenderness Knee Palpation Overall Comment Pt TTP along medial and lateral anterior jt line, quad tendon, pes anserine MMT Knee Extension Strength Grade 3- Fair- Knee Flexion Strength Grade 3- Fair- ROM Knee Extension Active Range of Motion ( 5 from neutral degrees) Knee Flexion Active Range of Motion ( 100 degrees) Knee ROM Limitations Pain Outpatient Therapy Assessment Impairments Problems/Impairmments Palpation Tenderness,Impaired Range of Motion,Impaired Strength,Impaired Gait Pattern ,Impaired Walking,Impaired Standing,Impaired Household Care,Impaired Stair Climbing, Impaired
== END 2022-04-27 17:35 | disposition home or self-care (01) ==
LOC: PT 17:30
PROVIDERS: Visit Provider Orthopaedic Surgery
DX: M25.561 Pain in right knee (principal); Z96.651 Presence of right artificial knee joint
CPT/HCPCS: 97110; 97140; 97163

== ENCOUNTER → 2022-05-05 14:21 | Outpatient (CLI) | payer OTHER, SELFPAY ==
[2022-05-05 15:16] LABS: Amphetamine/Metha Screen,Urine Negative ng/ml (<1000); Benzodiazepines Screen,Urine Negative ng/ml (<200)
[2022-05-05 15:17] LABS: Barbiturates Screen,Urine Negative ng/ml (<200)
[2022-05-05 15:18] LABS: Cannabinoid Screen,Urine Negative ng/ml (<50); Cocaine Screen,Urine Negative ng/ml (<300)
[2022-05-05 15:19] LABS: Methadone Screen,Urine Negative ng/ml (<300); Opiate Screen,Urine Negative ng/ml (<300)
[2022-05-05 15:20] LABS: Phencyclidine Screen,Urine Negative ng/ml (<25)
== END ==
PROVIDERS: PCP Emergency Medicine; Visit Provider Emergency Medicine
DX: Z79.899 Other long term (current) drug therapy (principal)
CPT/HCPCS: 80305

== ENCOUNTER 2022-05-23 14:28 | Emergency (ER) | payer OTHER, SELFPAY ==
[2022-05-23 14:29] VITALS: BP 137/82; PULSE 75; RESP 16; TEMP 36.7; O2SAT 98; BMI 27.4
[2022-05-23 15:00] VITALS: BP 133/83; PULSE 70; RESP 16; O2SAT 99
--- NOTE | 2022-05-23 16:06 | PC.NURSE ---
pt and family told publications distribution clerk that they didnt want to wait and they were leaving
[2022-05-23 16:08] VITALS: BP 133/83; PULSE 70; RESP 16; TEMP 36.7; O2SAT 99
== END 2022-05-23 16:09 | disposition left against medical advice (07) ==
PROVIDERS: Emergency Provider Emergency Medicine; PCP Emergency Medicine
DX: Z53.21 Procedure and treatment not carried out due to patient leaving prior to being seen by health care provider (principal)

== ENCOUNTER → 2022-07-03 15:30 | Outpatient (CLI) | payer OTHER, SELFPAY ==
[2022-07-03 19:58] LABS: Amphetamine/Metha Screen,Urine Negative ng/ml (<1000)
[2022-07-03 19:59] LABS: Barbiturates Screen,Urine Negative ng/ml (<200); Benzodiazepines Screen,Urine Negative ng/ml (<200)
[2022-07-03 20:01] LABS: Cannabinoid Screen,Urine Negative ng/ml (<50); Cocaine Screen,Urine Negative ng/ml (<300)
[2022-07-03 20:02] LABS: Methadone Screen,Urine Negative ng/ml (<300)
[2022-07-03 20:03] LABS: Opiate Screen,Urine Negative ng/ml (<300); Phencyclidine Screen,Urine Negative ng/ml (<25)
== END ==
PROVIDERS: PCP Emergency Medicine; Visit Provider Emergency Medicine
DX: Z79.899 Other long term (current) drug therapy (principal)
CPT/HCPCS: 80305

== ENCOUNTER → 2022-08-30 16:05 | Outpatient (CLI) | payer OTHER, SELFPAY ==
[2022-08-30 20:14] LABS: Amphetamine/Metha Screen,Urine Negative ng/ml (<1000)
[2022-08-30 20:15] LABS: Barbiturates Screen,Urine Negative ng/ml (<200); Benzodiazepines Screen,Urine Negative ng/ml (<200)
[2022-08-30 20:17] LABS: Cannabinoid Screen,Urine Negative ng/ml (<50); Cocaine Screen,Urine Negative ng/ml (<300)
[2022-08-30 20:18] LABS: Methadone Screen,Urine Negative ng/ml (<300)
[2022-08-30 20:19] LABS: Opiate Screen,Urine Positive ng/ml (<300)
[2022-08-30 20:20] LABS: Phencyclidine Screen,Urine Negative ng/ml (<25)
== END ==
PROVIDERS: PCP Emergency Medicine; Visit Provider Emergency Medicine
DX: Z79.899 Other long term (current) drug therapy (principal)
CPT/HCPCS: 80305

== ENCOUNTER → 2022-10-25 22:38 | Outpatient (CLI) | payer OTHER, SELFPAY ==
[2022-10-25 18:49] LABS: Amphetamine/Metha Screen,Urine Negative ng/ml (<1000)
[2022-10-25 18:50] LABS: Barbiturates Screen,Urine Negative ng/ml (<200)
[2022-10-25 18:51] LABS: Benzodiazepines Screen,Urine Negative ng/ml (<200); Cannabinoid Screen,Urine Negative ng/ml (<50)
[2022-10-25 18:52] LABS: Cocaine Screen,Urine Negative ng/ml (<300)
[2022-10-25 18:54] LABS: Methadone Screen,Urine Negative ng/ml (<300)
[2022-10-25 18:55] LABS: Opiate Screen,Urine Positive ng/ml (<300); Phencyclidine Screen,Urine Negative ng/ml (<25)
== END ==
PROVIDERS: PCP Emergency Medicine; Visit Provider Emergency Medicine
DX: Z79.899 Other long term (current) drug therapy (principal)
CPT/HCPCS: 80305

== ENCOUNTER → 2022-12-22 18:04 | Outpatient (CLI) | payer OTHER, SELFPAY ==
[2022-12-22 19:14] LABS: Amphetamine/Metha Screen,Urine Negative ng/ml (<1000); Barbiturates Screen,Urine Negative ng/ml (<200)
[2022-12-22 19:15] LABS: Benzodiazepines Screen,Urine Negative ng/ml (<200); Cannabinoid Screen,Urine Negative ng/ml (<50)
[2022-12-22 19:16] LABS: Cocaine Screen,Urine Negative ng/ml (<300)
[2022-12-22 19:17] LABS: Methadone Screen,Urine Negative ng/ml (<300); Opiate Screen,Urine Negative ng/ml (<300)
[2022-12-22 19:18] LABS: Phencyclidine Screen,Urine Negative ng/ml (<25)
== END ==
PROVIDERS: PCP Emergency Medicine; Visit Provider Emergency Medicine
DX: Z79.899 Other long term (current) drug therapy (principal)
CPT/HCPCS: 80305

== ENCOUNTER 2022-12-28 11:41 | Emergency (ER) | payer OTHER, SELFPAY ==
[2022-12-28 11:51] VITALS: BP 154/92; PULSE 80; RESP 16; TEMP 36.6; O2SAT 98; BMI 30.2
--- NOTE | 2022-12-28 12:08 | XR_ITS ---
FINAL REPORT CLINICAL HISTORY: shoulder injury, fall FINDINGS: Left shoulder Four views were obtained. There is no acute fracture or dislocation. There is mild AC joint degenerative change. No soft tissue abnormality is identified. IMPRESSION: Mild AC joint degenerative change. Reviewed, Interpreted and Dictated by Josafat Carbone III, MD Transcribed by Chio Contreras Authenticated and [facility]
--- NOTE | 2022-12-28 13:32 | PC.NURSE ---
Patient and support person updated on plan of care. Call joseph within reach. Per MD quezada for PO.
[2022-12-28 14:00] VITALS: BP 130/89; PULSE 81; RESP 18; O2SAT 98
--- NOTE | 2022-12-28 14:08 | HMH.EDGENADL ---
Discharge Plan Disposition Patient Disposition: Home, Self-Care Condition: Good Prescriptions Prescriptions: New meloxicam 15 mg tablet 15 mg PO DAILY Qty: 14 0RF cyclobenzaprine 10 mg tablet 10 mg PO TID PRN (Reason: muscle spasm) Qty: 14 0RF No Action hydrocodone-acetaminophen 10-325 mg tablet 1 tab PO QID Qty: 120 0RF amlodipine 5 mg tablet See Rx Instructions .ROUTE .COMPLEX Qty: 30 3RF Dose Instruction: TAKE ONE TABLET BY MOUTH ONCE A DAY FOR HYPERTENSION Rx Instructions: TAKE ONE TABLET BY MOUTH ONCE A DAY FOR HYPERTENSION diclofenac sodium 1 % gel 2 g topical QID Qty: 100 0RF Rx Instructions: apply to single elbow, wrist or hand; for hand includes palm/fingers/back of hand gemfibrozil 600 mg tablet 600 mg PO BID Qty: 90 3RF lidocaine 5 % adhesive patch,medicated 1 patch topical DAILY Qty: 30 0RF Rx Instructions: leave on most painful area for up to 12 hrs Referrals Follow up/Referrals: Rakesh Melgoza MD [Primary Care Provider] - See instructions Clinical Impressions Clinical Impression: Left shoulder strain, AC joint arthropathy Print Language Print Language: Spanish Discharge ED Provider: Riky Kang General Adult HPI General Chief complaint: Extremity Injury, Upper Stated complaint: AO5/18@work, pain in Lt shoulder Time Seen by Provider: 12/28/22 14:12 Mode of Arrival: Ambulatory Source of Information: Patient Limitations: No Limitations Description of Symptoms (Recalled from ER Triage Doc. by RN): Presents via POV d/t LUE injury secondary to fall while in barn. Limited ROM, however senstation intact with +radial pulses. History of Present Illness HPI narrative: Patient presents to the emergency department after reportedly falling just prior to arrival. The patient states that he slipped in apartment and fell directly onto his left shoulder. Denies any other injuries. He states he did not hit his head or lose consciousness. Denies any headache or neck pain. Related Data Previous Rx's Medication Instructions Recorded amlodipine 5 mg tablet See Rx Instructions .Route 12/22/22 .COMPLEX #30 tabs diclofenac sodium 1 % topical gel 2 g topical QID #100 grams 12/22/22 gemfibrozil 600 mg tablet 600 mg PO BID Cholesterol #90 tabs 12/22/22 hydrocodone 10 mg-acetaminophen 1 tab PO QID #120 tabs 12/22/22 325 mg tablet lidocaine 5 % topical patch 1 patch topical DAILY #30 ea 12/22/22 cyclobenzaprine 10 mg tablet 10 mg PO TID PRN muscle spasm #14 12/28/22 tabs meloxicam 15 mg tablet 15 mg PO DAILY #14 tabs 12/28/22 Allergies Allergy/AdvReac Type Severity Reaction Status Date / Time milk Allergy Intermediate Vomiting Verified 12/22/22 15:51 [facility] Disclaimer: The information contained in this section may have been updated after the patient was seen, as this information can be updated by other users. Medical History HTN (hypertension), benign Hyperlipemia Social History Smoking Status: Unknown if ever smoked alcohol intake: current substance use type: denies use current occupational status: unemployed Travel in the last 8 weeks: None household members: significant other housing: house current occupational exposures/hazards: No caffeine: Yes ROS Obtained: Yes All systems reviewed & no additional complaints except as documented Musculoskeletal Musculoskeletal: Reports system reviewed and no additional complaints, except as documented and Reports arthralgias Physical Exam General General appearance: alert and in no apparent distress Head Head exam: atraumatic, normocephalic and normal inspection Eye Eye exam: Present normal appearance, PERRL and EOMI Neck Neck exam: Present normal inspection Chest Chest inspection: Present normal inspection Respiratory Respiratory exam: Present
[2022-12-28 14:31] VITALS: BP 138/89; PULSE 77; RESP 18; TEMP 36.6; O2SAT 98
== END 2022-12-28 14:33 | disposition home or self-care (01) ==
PROVIDERS: Emergency Provider Emergency Medicine; PCP Emergency Medicine
DX: S46.912A Strain of unspecified muscle, fascia and tendon at shoulder and upper arm level, left arm, initial encounter (principal); M12.9 Arthropathy, unspecified; W01.0XXA Fall on same level from slipping, tripping and stumbling without subsequent striking against object, initial encounter
CPT/HCPCS: 73030; 96372; 99283; 99284

== ENCOUNTER → 2023-03-01 16:45 | Outpatient (CLI) | payer OTHER, SELFPAY ==
--- NOTE | 2023-03-01 17:09 | ECG_ITS ---
APPROVED REPORT Exam: Resting ECG HR:78 bpm ECG Measurements Heart Rate 78 AXES CO 160 P 40 QRSd 97 QRS -33 QT 359 T 5 QTc 392 Conclusion SINUS RHYTHM LEFT AXIS DEVIATION [QRS AXIS < -30] ABNORMAL ECG UNCONFIRMED REPORT Electronically signed by : Adrian Hunt MD 03/01/2023 21:20:09
--- NOTE | 2023-03-01 17:15 | XR_ITS ---
PROCEDURE INFORMATION: Exam: XR Chest Exam date and time: 03/01/2023 5:17 PM Age: 45 years old Clinical indication: Screening exam; Pre-operative exam; Cardiovascular screening; Additional info: Hypertension TECHNIQUE: Imaging protocol: Radiologic exam of the chest. Views: 2 views. COMPARISON: MR GUSTAFSON SHOULDER LEFT W/O CON 01/27/2023 10:44 AM FINDINGS: Lungs: Calcified granuloma in the left mid lung . No focal consolidation Pleural spaces: Unremarkable. No pleural effusion. No pneumothorax. Heart/Mediastinum: Unremarkable. No cardiomegaly. Bones/joints: Unremarkable. IMPRESSION: No focal consolidation
[2023-03-01 17:35] LABS: Hemoglobin A1C 5.7 % (4.0-6.0)
[2023-03-01 17:36] LABS: Blood Urea Nitrogen 20 mg/dl (9-20); Calcium 9.2 mg/dl (8.4-10.2); Carbon Dioxide 27 mmol/L (22.0-30.0); Chloride 106 mmol/L (98-107); Estimated Glomerular Filt Rate 121 ml/min (>60); GFR (African American) 147 ML/MIN (>60); Glucose 103 mg/dl (74-100); Sodium 141 mmol/L (136-145)
[2023-03-01 17:44] LABS: Basophils % 0.6 % (0.1-2.0); Eosinophils # 0.4 K/mm3 (0.0-0.4); Eosinophils % 6.4 % (0.1-12.0); Hematocrit 43.1 % (42.0-52.0); Lymphocytes # 1.5 K/mm3 (0.7-4.5); Lymphocytes % 26.1 % (10-50); Mean Corpuscular HGB Conc 32.4 g/dL (31.8-35.4); Mean Corpuscular Volume 95.7 fl (80-94); Mean Platelet Volume 9.1 fl (7.4-10.4); Monocytes # 0.4 K/mm3 (0.1-1.0); Monocytes % 6.7 % (1.7-9.3); Neutrophils # 3.5 K/mm3 (1.8-7.8); Neutrophils % 60.2 % (37.0-80.0); Platelet Count 201 K/mm3 (142-424); Red Blood Count 4.51 M/mm3 (4.60-6.20); Red Cell Distribution Width 12.4 % (11.5-17.5); White Blood Count 5.9 K/mm3 (4.8-10.8)
== END ==
PROVIDERS: PCP Emergency Medicine; Visit Provider Orthopaedic Surgery
DX: Z01.818 Encounter for other preprocedural examination (principal); R73.09 Other abnormal glucose; Z87.898 Personal history of other specified conditions
CPT/HCPCS: 36415; 71046; 80048; 83036; 85025; 93005

== ENCOUNTER 2023-07-13 15:00 | Outpatient (RCR) | payer OTHER, SELFPAY | END 2023-07-13 16:10 | disposition home or self-care (01) | LOC: OT 15:00 | PROVIDERS: Visit Provider Orthopaedic Surgery | DX: M75.102 Unspecified rotator cuff tear or rupture of left shoulder, not specified as traumatic (principal); M25.512 Pain in left shoulder | CPT/HCPCS: 97010; 97014; 97110; 97140; 97164; 97166; 97530; G0283 ==

== ENCOUNTER 2023-09-27 21:50 | Outpatient (CLI) | payer OTHER, SELFPAY ==
[2023-09-27 18:14] LABS: Chol/HDL Ratio 5.4 (1-3.5); Cholesterol 252 mg/dl (140-200); HDL Cholesterol 47 mg/dl (40-60); Triglycerides 298 mg/dl (30-150); VLDL Cholesterol 60 mg/dL (0-40)
[2023-09-27 18:48] LABS: Basophils % 0.6 % (0.1-2.0); Eosinophils # 0.5 K/mm3 (0.0-0.4); Eosinophils % 7.2 % (0.1-12.0); Hemoglobin 15.2 g/dL (14.1-18.0); Lymphocytes # 2.2 K/mm3 (0.7-4.5); Lymphocytes % 33.9 % (10-50); Mean Corpuscular HGB Conc 33.8 g/dL (31.8-35.4); Mean Corpuscular Hemoglobin 32.5 pg (27.0-31.2); Mean Platelet Volume 10.5 fl (7.4-10.4); Monocytes # 0.5 K/mm3 (0.1-1.0); Monocytes % 8.1 % (1.7-9.3); Neutrophils # 3.3 K/mm3 (1.8-7.8); Neutrophils % 50.2 % (37.0-80.0); Platelet Count 203 K/mm3 (142-424); Red Blood Count 4.69 M/mm3 (4.60-6.20); Red Cell Distribution Width 12.7 % (11.5-17.5); White Blood Count 6.5 K/mm3 (4.8-10.8)
== END 2023-09-27 23:59 | disposition home or self-care (01) ==
LOC: LAB.DROPOF 21:50
PROVIDERS: PCP Internal Medicine; Visit Provider Internal Medicine
DX: R53.83 Other fatigue (principal); Z79.899 Other long term (current) drug therapy; G89.29 Other chronic pain
CPT/HCPCS: 80061; 85025

== ENCOUNTER 2024-05-21 09:50 | Outpatient (CLI) | payer OTHER, SELFPAY ==
[2024-05-21 19:53] LABS: Creatinine,Urine Random 45 mg/dL (Not Estab.)
== END 2024-05-21 23:59 | disposition home or self-care (01) ==
LOC: LAB.DROPOF 05-22 09:50
PROVIDERS: PCP Internal Medicine; Visit Provider Internal Medicine
DX: R73.03 Prediabetes (principal); Z51.81 Encounter for therapeutic drug level monitoring
CPT/HCPCS: 82043; 82570

== ENCOUNTER 2024-07-17 15:54 | Outpatient (CLI) | payer OTHER, SELFPAY ==
[2024-07-17 18:08] LABS: Microscopic, Urine URINE MICROSCOPIC (MICROSCOPIC)
[2024-07-17 19:14] LABS: Blood Urea Nitrogen 19 mg/dl (9-20); Calcium 9.3 mg/dl (8.4-10.2); Carbon Dioxide 26 mmol/L (22.0-30.0); Chloride 105 mmol/L (98-107); Estimated Glomerular Filt Rate 90 ml/min (>60); GFR (African American) 109 ML/MIN (>60); Glucose 125 mg/dl (74-100); Sodium 142 mmol/L (136-145)
[2024-07-17 19:44] LABS: Appearance,Urine CLEAR (Clear); Bilirubin,Urine Negative (Negative); Blood, Urine Negative (Negative); Color,Urine YELLOW (Yellow); Glucose,Urine (UA) Negative (Negative); Ketones,Urine Negative (Negative); Leukocyte Esterase,Urine Negative (Negative); Nitrate,Urine Negative (Negative); Protein,Urine Negative (Negative); Specific Gravity, Urine 1.025 (1.005-1.030); Urobilinogen,Urine 0.2 EU/dl (0.2)
[2024-07-17 21:12] LABS: Bacteria,Urine Trace /lpf; Squamous Epithelial Cell,Urine Occasional #/hpf (0-5)
[2024-07-19 20:37] LABS: Osmolality, Urine 812 mOsmol/kg (.)
== END 2024-07-17 23:59 | disposition home or self-care (01) ==
LOC: LAB.DROPOF 07-18 09:30
PROVIDERS: PCP Internal Medicine; Visit Provider Internal Medicine
DX: I10 Essential (primary) hypertension (principal); Z51.81 Encounter for therapeutic drug level monitoring
CPT/HCPCS: 80048; 81001; 83935; 84540